=== PATIENT | male | born 1955 | race Caucasian/White ===

== ENCOUNTER 2023-10-07 07:59 | Outpatient (CLI) | payer MEDICARE, SELFPAY ==
--- NOTE | ~2023-10-07 | US_ITS ---
US abdomen limited 10/07/2023 08:13 Indication: Trauma cytopenia. Splenomegaly. Low platelets. Procedure: Limited ultrasound of the left upper abdomen Comparison: No prior studies for comparison. Findings: Splenic echotexture is homogeneous without focal mass. Spleen measures 11.7 cm, which is wi thin normal limits. Left renal echotexture is unremarkable. Left kidney measures 12 cm. No hydronephr osis or mass. Impression: 1: Normal left upper abdominal ultrasound. No evidence for splenomegaly. Reviewed, dictated and finalized at location B. Impression: 1: Normal left upper abdominal ultrasound. No evidence for splenomegaly.
== END 2023-10-07 08:00 ==
LOC: MICIMG 08:01
PROVIDERS: PCP Internal Medicine; Visit Provider Internal Medicine Medical Oncology
DX: D69.6 Thrombocytopenia, unspecified (principal); R16.1 Splenomegaly, not elsewhere classified
CPT/HCPCS: 76705

== ENCOUNTER 2023-10-26 20:35 | Emergency (ER) | payer MEDICARE, SELFPAY ==
--- NOTE | ~2023-10-26 | CT_ITS ---
Clinical Indication: Elevated d-dimer CT Scan of the Chest with Contrast: Technique: Contiguous sections were acquired throughout the chest after intravenous administration of 100 cc of Omnipaque 350. Dose reduction technique was used on this scan by utilizing automated expos ure control and iterative reconstruction technique. The dose-length product (DLP) was 882.58 mGy-cm. Findings: Single prevascular lymph node or other lobulated mass measures 1.6 x 1.4 cm (axial image 84). No othe r lymphadenopathy/mesial mass identified. There is no filling defect in the pulmonary arterial tree t o suggest pulmonary embolus. There is no evidence of aortic dissection or aneurysm. There is no evidence of pleural or pericardial effusion. The lungs are clear, aside from calcified right upper lobe granuloma. Images through the upper abdomen reveal no abnormalities. Impression: No evidence of pulmonary embolus, aortic dissection, or aortic aneurysm. 1.6 x 1.4 cm mildly enlarged lymph node or other circumscribed mass in the anterior mediastinum. This is indeterminate. Given small size, circumscribed appearance, patient age, consider continued survei llance/follow-up versus additional workup at this time such as PET/CT. Tissue sampling could be consi dered as indicated. Clear lungs. Reviewed, dictated and finalized at location . Impression: No evidence of pulmonary embolus, aortic dissection, or aortic aneurysm. 1.6 x 1.4 cm mildly enlarged lymph node or other circumscribed mass in the ante rior mediastinum. This is indeterminate. Given small size, circumscribed appear ance, patient age, consider continued surveillance/follow-up versus additional workup at this time such as PET/CT. Tissue sampling could be considered as regine cated. Clear lungs.
--- NOTE | ~2023-10-26 | XR_ITS ---
EXAMINATION: XR chest 2V DATE: 10/26/2023 21:27 INDICATION: Chest pain. Shortness of breath. TECHNIQUE: Frontal and lateral views of the chest were obtained. COMPARISON: None. FINDINGS: A calcified right lung nodule and calcified right hilar lymph nodes are consistent with old granulomatous disease. No pleural effusion or pneumothorax. The heart is normal. IMPRESSION: 1. No acute cardiopulmonary disease. Reviewed, dictated and finalized at location A.
--- NOTE | 2023-10-26 20:36 | ECG_ITS ---
Test Date: 2023-10-26 20:57:43 Measurements Intervals [place] Rate: 54 P: 40 HI: 173 QRS: 40 QRSD: 94 T: 37 QT: 406 QTc: 387 Interpretive Statements SINUS BRADYCARDIA ANTEROSEPTAL MYOCARDIAL INFARCTION , OF INDETERMINATE AGE BASELINE ARTIFACT- I, II, III, AVR, AVL, AVF ABNORMAL ECG No previous ECG available for comparison Electronically Signed On 10-27-2023 05:25:25 CDT by Russell Jaramillo D.O.
--- NOTE | 2023-10-26 20:36 | PC.NURSE ---
pt does not take baby aspirin d/t low platelet counts
[2023-10-26 20:50] VITALS: BP 205/66; PULSE 66; RESP 18; TEMP 37; O2SAT 99
[2023-10-26 21:15] LABS: Basophils Percent Auto 0.5 % (0.2-1.2); Eosinophils Absolute Auto 0.1 K/mm3 (0-0.3); Eosinophils Percent Auto 1.4 % (0-4.4); Hematocrit 39.9 % (42.0-52.0); Hemoglobin 14.1 g/dL (14.0-18.0); Immature Granulocyte Absolute 0.02 K/mm3 (0.00-0.031); Immature Granulocyte Percent A 0.3 % (0-0.5); Immature Platelet Fraction Pct 8.9 % (0.9-11.2); Lymphocytes Absolute Auto 1.78 K/mm3 (0.9-3.2); Lymphocytes Percent Auto 30.1 % (18.3-44.2); Mean Corpuscular HGB Conc 35.3 g/dl (32-36); Mean Corpuscular Hemoglobin 31.3 pg (26-34); Mean Corpuscular Volume 88.7 fl (80-100); Mean Platelet Volume 11.5 fl (7.4-10.4); Monocytes Absolute Auto 0.5 K/mm3 (0.1-0.6); Monocytes Percent Auto 8.6 % (2.6-8.5); Neutrophils Absolute Auto 3.5 K/mm3 (1.3-6.7); Neutrophils Percent Auto 59.1 % (45.5-73.1); Red Cell Distribution Width 12.3 % (11.5-14.5); White Blood Count 5.9 K/mm3 (4.5-10.0)
[2023-10-26 21:24] LABS: Alanine Aminotransferase 21 U/L (6-50); Albumin Level 4.4 g/dL (3.5-5.1); Alkaline Phosphatase 72 U/L (38-126); Anion Gap 8 mmol/L (4-12); Aspartate Amino Transferase 32 U/L (17-59); Bilirubin,Total 0.6 mg/dL (0.2-1.3); Blood Urea Nitrogen 27 mg/dL (9-20); Calcium 9.4 mg/dL (8.4-10.2); Carbon Dioxide 31 mmol/L (22-30); Chloride 98 mmol/L (98-107); Estimated CRCL calculation 81 ml/min; Estimated Glomerular Filt Rate > 60; Glucose 151 mg/dL (65-110); Lipase 37 U/L (23-300); Partial Thromboplastin Time 28.7 Seconds (22.3-36.8); Potassium 4.6 mmol/L (3.4-5.0); Prothrombin Time 13.6 Seconds (11.1-14.7); Sodium 137 mmol/L (137-145)
[2023-10-26 21:35] LABS: Platelet Count Result 82 k/mm3 (150-375)
[2023-10-26 21:36] LABS: Troponin I < 0.012 ng/mL (0.000-0.034)
[2023-10-27] VITALS (8 sets, daily range): BP systolic 183–207; BP diastolic 58–73; PULSE 53–61; RESP 12–20; O2SAT 96–100
--- NOTE | 2023-10-27 00:34 | ECG_ITS ---
Test Date: 2023-10-27 00:37:41 Measurements Intervals [place] Rate: 53 P: 26 ME: 164 QRS: 45 QRSD: 87 T: 30 QT: 412 QTc: 389 Interpretive Statements SINUS BRADYCARDIA ANTEROSEPTAL MYOCARDIAL INFARCTION , OF INDETERMINATE AGE ABNORMAL ECG Compared to ECG 10/26/2023 20:57:43 No significant changes Electronically Signed On 10-27-2023 05:24:31 CDT by Russell Jaramillo D.O.
[2023-10-27 01:18] LABS: Troponin I < 0.012 ng/mL (0.000-0.034)
[2023-10-27 02:59] LABS: Lipase 38 U/L (23-300); Magnesium 1.5 mg/dL (1.6-2.3)
[2023-10-27 03:03] LABS: D Dimer 3.09 ug/mL (<0.48); NT Pro B Type Natriuretic Pept 174 pg/mL (19.9-100)
[2023-10-27 03:06] LABS: Troponin I < 0.012 ng/mL (0.000-0.034)
--- NOTE | 2023-10-27 03:27 | ED.CHESTPAIN ---
HPI - Chest Pain General Chief Complaint: Chest Pain <Della Lozano APRN - Last Filed: 10/27/23 03:59> Stated Complaint: chest pain and sob <Della Lozano APRN - Last Filed: 10/27/23 03:59> Time Seen by Provider: 10/27/23 00:34 <Della Lozano APRN - Last Filed: 10/27/23 03:59> Source: patient <Della Lozano APRN - Last Filed: 10/27/23 03:59> Mode of arrival: ambulatory <Della Lozano APRN - Last Filed: 10/27/23 03:59> Limitations: no limitations <Della Lozano APRN - Last Filed: 10/27/23 03:59> History of Present Illness HPI narrative: Pt is a 68-year-old male who presents to the ER with chest pain. He reports he had chest pain that started earlier this afternoon without any exertion. Pt took two nitro at home that didn't really help his chest pain, but the pain has since resolved. He also endorses shortness of breath at the time of his chest. At home, his blood pressure was 200s over 100s on my home blood pressure cuff and I had a terrible headache Pt reports his headache has resolved. He reports he has a [employer] operator in [place] who ordered an ECHO and nuclear stress test to be performed in the next couple of weeks. Pt reports he is also diligent about taking his medications at home. He reports his lower extremities are often swollen, but he has not noticed any acute changes in swelling recently. Pt denies active chest pain or shortness of breath at this time, dizziness, one-sided weakness/tingling/numbness, or headache. <Della Lozano APRN - Last Filed: 10/27/23 03:59> Related Data Allergies/Adverse Reactions: Allergies Allergy/AdvReac Type Severity Reaction Status Date / Time rofecoxib Allergy Mild Unknown Verified 10/27/23 00:32 atorvastatin [From Lipitor] AdvReac Muscle Pain Verified 10/27/23 00:32 <Della Lozano APRN - Last Filed: 10/27/23 03:59> Review of Systems Review of Systems: All systems reviewed & are unremarkable except as noted in HPI and below <Della Lozano APRN - Last Filed: 10/27/23 03:59> Exam Narrative: GENERAL: Well-appearing, well-nourished and in no acute distress. NECK: Supple, normal range of motion, no JVD. CARDIAC: Regular rate and rhythm without murmurs, rubs or gallops. RESPIRATORY: Clear to auscultation bilaterally. No wheezes, rales or rhonchi. Regular rate. ABDOMEN: Soft, nontender, normoactive bowel sounds throughout, no guarding, no rebound. No masses appreciated. EXTREMITIES: Normal range of motion, minor, equal swelling in lower extremities, no clubbing or other deformities. NEUROLOGICAL: Cranial nerves II through XII grossly intact, no focal deficits noted. Normal speech. A & O x 4 SKIN: Warm, dry, normal color, no rashes, no lesions. <Della Lozano APRN - Last Filed: 10/27/23 03:59> Course Course Emergency Course: ADRIEN 629: Patient signed out to me pending CT PE. CT PE negative for pulmonary embolism. Only finding was a small circumscribed lymph node that can be followed by the primary care physician. On re-evaluation the patient is resting comfortably. He has not had chest pain during his 10 hour stay in the emergency department. Discussed admission versus discharge the patient is very comfortable following up with Cardiology outpatient. He will return to ED if he develops any more chest pain. <Alfredo Morin MD - Last Filed: 10/27/23 06:58> Vital Signs Vital signs: Vital Signs Temperature 98.6 F 10/26/23 20:50 Pulse Rate 66 10/26/23 20:50 Respiratory Rate 18 10/26/23 20:50 Blood Pressure 205/66 H 10/26/23 20:50 Pulse Oximetry 99 10/26/23 20:50 Oxygen Delivery Room Air 10/26/23 20:50 Temperature 98.6 F 10/26/23 20:50 Pulse Rate 60 10/27/23 05:03 Respiratory Rate 16 10/27/23 05:03 Blood Pressure 183/58 H 10/27/23 04:01 Pulse Oximetry 97 10/27/23 05:03 Oxygen Delivery Room Air 10/26/23 20:50 <Della Mittal
== END 2023-10-27 07:39 | disposition home or self-care (01) ==
PROVIDERS: Emergency Medicine; Emergency Provider Registered Nurse; PCP Internal Medicine
DX: R07.9 Chest pain, unspecified (principal); R06.02 Shortness of breath; R00.1 Bradycardia, unspecified; R94.31 Abnormal electrocardiogram [ECG] [EKG]
CPT/HCPCS: 36415; 71046; 71275; 80053; 83690; 83735; 83880; 84484; 85025; 85055; 85380; 85610; 85730; 93005; 99284; Q9967